=== PATIENT | female | born 1965 | race Caucasian/White ===

== ENCOUNTER 2024-02-08 10:46 | Outpatient (CLI) | payer SELFPAY ==
[2024-02-10 13:24] LABS: Quantiferon Mitogen 8.46 IU/mL; Quantiferon Nil 0.02 IU/mL; Quantiferon TB Gold NEGATIVE (NEGATIVE)
== END 2024-02-08 10:47 | disposition home or self-care (01) ==
LOC: LAB 10:49
PROVIDERS: PCP Surgery; Visit Provider Nurse Practitioner Family
DX: L40.59 Other psoriatic arthropathy (principal)
CPT/HCPCS: 36415; 86480